=== PATIENT | male | born 1995 | race Caucasian/White ===

== ENCOUNTER 2021-03-08 23:06 | Emergency (ER) | payer OTHER ==
[~2021-03-08] VITALS: Ht 177.8 cm; Wt 95.3 kg
[2021-03-08 23:13] VITALS: BP 141/77
[2021-03-09] MEDS ORDERED: PROZAC40 MG (00:10)
[2021-03-09] MEDS ORDERED: [UNRECOGNIZED DRUG - OTHER] PO (00:11)
[2021-03-09] MEDS ORDERED: TESSALON PERLE100 MG PO (00:19)
== END 2021-03-09 00:30 | disposition home or self-care (01) ==
LOC: ER 23:06
PROVIDERS: Emergency Medicine
DX: U07.1 COVID-19 (principal); J06.9 Acute upper respiratory infection, unspecified; Z21 Asymptomatic human immunodeficiency virus [HIV] infection status; Z79.899 Other long term (current) drug therapy